=== PATIENT | female | born 1930 | race Asian ===

== ENCOUNTER 2019-03-03 19:58 | Inpatient (IN) | payer OTHER, MEDICAID ==
[~2019-03-03] VITALS: Ht 154.9 cm; Wt 44.0 kg
[~2019-03-03 19:58] MED LIST: CEFAZOLIN 1 GM IVPB PREMIX 50 ML IV ONE; GLYCOPYRROLATE 0.2 MG/ML VIAL IJ ONE; LR 1,000 ML IV.SOLN IV ONE; MIDAZOLAM HCL 5 MG/5 ML VIAL IVP ONE; NEOSTIGMINE METHYLSULFATE 1 MG/ML, 10 ML VIAL IVP ONE; ONDANSETRON HCL 4 MG/2 ML VIAL IVP ONE; ROCURONIUM BROMIDE 10 MG/ML (ZEMURON) IV ONE; SEVOFLURANE 15 MIN GAS INH ONE; fentaNYL CITRATE/PF 100 MCG/2 ML AMP IVP ONE
[2019-03-03 20:00] VITALS: BP_SYST 163
--- NOTE | 2019-03-03 20:31 | NUR ---
Patient to ER bed 05 for evaluation. Side rails up. Report given to Rosana BENNETT.
--- NOTE | 2019-03-03 20:32 | NUR ---
Pt AAOx4, cantonese speaking only, presents to ED via BLS from home c/o 8/ pain to L hip s/p mechanical trip and fall on [address] prior to arrival. Pt denies ko/head,neck,back pain. No meds given. No other injuries/complaints per pt/noted. Will continue to monitor.
[2019-03-03] MEDS ORDERED: KETOROLAC TROMETHAMINE 30 MG VIAL IM ONE (21:00)
[2019-03-03] MEDS ORDERED: MORPHINE 2 MG/ML INJ. SYRINGE IM ONE (21:00)
--- NOTE | 2019-03-03 21:15 | NUR ---
ER Dr. De Jesus at bedside examining patient.
[2019-03-03 21:24] LABS: BASOPHILS % (AUTO) 0.3 % (0.0-2.0); EOSINOPHILS % (AUTO) 0.6 % (0.0-4.0); HEMATOCRIT 35.5 % (36-48); LYMPHOCYTES # (AUTO) 0.7 K/uL (1.0-5.5); LYMPHOCYTES % (AUTO) 10.8 % (20.5-51.5); MEAN CORPUSCULAR HEMOGLOBIN 31 pg (27-31); MEAN CORPUSCULAR HGB CONC 34 % (32-36); MEAN CORPUSCULAR VOLUME 93 fL (79.0-98.0); MONOCYTES # (AUTO) 0.3 K/uL (0.0-1.0); MONOCYTES % (AUTO) 4.5 % (1.7-9.3); NEUTROPHILS # (AUTO) 5.1 K/uL (1.8-7.7); NEUTROPHILS % (AUTO) 83.8 % (40.0-70.0); PLATELET COUNT (AUTO) 146 K/uL (130-430); RED BLOOD CELL COUNT(AUTO) 3.84 MIL/uL (4.2-6.2); RED CELL DISTRIBUTION WIDTH 13.4 % (9.0-15.0); WHITE BLOOD COUNT (AUTO) 6.1 K/uL (4.8-10.8)
[2019-03-03] MEDS ORDERED: KETOROLAC TROMETHAMINE 30 MG VIAL IVP ONE (21:30)
[2019-03-03] MEDS ORDERED: MORPHINE 2 MG/ML INJ. SYRINGE IVP ONE (21:30)
[2019-03-03 21:49] LABS: PROTHROMBIN TIME 10.1 SECS (9.5-12.5)
[2019-03-03 21:55] LABS: ALANINE AMINOTRANSFERASE 15 U/L (12-78); ALBUMIN 3.6 g/dL (3.4-4.8); ANION GAP 6 (5-15); ASPARTATE AMINOTRANSFERASE 19 U/L (10-37); CHLORIDE 104 mmol/L (98-107); CREATININE 0.89 mg/dL (0.55-1.30); GLUCOSE 130 mg/dL (70-99); POTASSIUM 3.6 mmol/L (3.5-5.1); SODIUM SERUM 141 mmol/L (136-145); TOTAL BILIRUBIN 0.3 mg/dL (0.0-1.0); UREA NITROGEN, BLOOD 26 mg/dL (8-21)
[2019-03-03] MEDS ORDERED: MEMA14CA PO (21:59)
[2019-03-03] MEDS ORDERED: CELE200C PO (21:59)
[2019-03-03] MEDS ORDERED: LIP10 PO (21:59)
[2019-03-03] MEDS ORDERED: APIX2.5T PO (21:59)
[2019-03-03] MEDS ORDERED: SYN75 PO (21:59)
[2019-03-03] MEDS ORDERED: SENN-104 PO (21:59)
[2019-03-03] MEDS ORDERED: NIFE-2 PO (21:59)
[2019-03-03] MEDS ORDERED: CALC-823 PO (21:59)
--- NOTE | 2019-03-03 22:11 | NUR ---
Patient will be admitted to care of Dr. Reynolds. Admitted to Telemetry unit. Will go to room 112 A. Belongings list completed. Summary report printed. Report will be given at bedside.
--- NOTE | 2019-03-03 22:12 | NUR ---
Transfer to Telemetry via ACLS protocol. Licensed nurse present. IV present no signs or symptoms of infiltration.
[2019-03-03] MEDS ORDERED: ACETAMINOPHEN 325 MG TABLET PO PRN (22:15)
[2019-03-03] MEDS ORDERED: HYDROcodone/ACETAMIN 5-325 MG TAB (NORCO/ VICODIN) PO PRN (22:15)
[2019-03-03] MEDS ORDERED: CELECOXIB 200 MG CAPSULE PO SCH (22:15)
--- NOTE | 2019-03-03 22:19 | NUR ---
ADMIT NOTE Received pt from ER to the floor with a diagnosis of possible bilateral hip fracture. Admission process initiated. patient oriented to pain management, safety and call light-teach back done.
[2019-03-03 22:41] VITALS: BP_SYST 133
--- NOTE | 2019-03-03 23:00 | NUR ---
initial notes: pt is awake, alert, oriented x 2, cantonese speaking, s/p fall at the street. dx of possible bilateral hip fracture. pt has severe pain to left hip when move. lump showing to left hip. no skin breakdown at the back. pt has left pacemaker- 100% rhythm. left ac gauge 18 saline lock. no skin breakdown at the back. discuss to daughter the plan of care,safety and call light. daughter and pt agree. needs attended, call light in reach. side rails up. bed alarm on.low bed position. will monitor.
--- NOTE | 2019-03-03 23:20 | NUR ---
pt agree for pt to have noriega catheter due to her condition.
[2019-03-03] MEDS: MORPHINE 2 MG/ML INJ. SYRINGE IVP PRN (23:42)
[2019-03-03] MEDS: NACL 0.9% 1,000 ML IV SCH (23:42)
[2019-03-04 01:29] LABS: THYROID STIMULATING HORMONE 2.26 uIu/mL (0.36-3.74)
--- NOTE | 2019-03-04 01:46 | NUR ---
CONSULTATION PAGED REASON FOR CONSULTATION: LEFT HIP FRACTURE WAS CONSULT CALLED? YES PERSON WHO WAS NOTIFIED: ADDISON CONSULTING PHYSICIAN: DR. HUMPHRIES BUT DR. KEY TRANSFER IRON OPERATOR FOR THIS MORNING RN PRIMARY CARE SPECIALTY: ORTHO RN PRIMARY CARE PHONE NUMBER: [phone] ORDERING PHYSICIAN: DR. SAUNDERS
[2019-03-04 01:53] LABS: CALCIUM 9.5 mg/dL (8.4-11.0)
--- NOTE | 2019-03-04 02:00 | NUR ---
pt is resting, comfortable. no sign of pain, not distress. no sob. ivf infusing well. safety on. will monitor.
--- NOTE | 2019-03-04 04:00 | NUR ---
sleeping, no pain. no sob. npo. needs attended.
--- NOTE | 2019-03-04 04:00 | NUR ---
still sleeping. noriega catheter draining well. no pain. non labored breathing. safety on. call light in reach needs attended.
[2019-03-04 05:30] LABS: BILIRUBIN,URINE NEGATIVE (NEGATIVE); CLARITY/URINE CLEAR (CLEAR); COLOR,URINE YELLOW (YELLOW); GLUCOSE,URINE NEGATIVE (NEGATIVE); KETONES,URINE NEGATIVE (NEGATIVE); LEUKOCYTE ESTERASE ,URINE NEGATIVE (NEGATIVE); NITRITE, URINE POSITIVE (NEGATIVE); PH,URINE 6.5 (5.0-8.0); PROTEIN URINE NEGATIVE (NEGATIVE); UROBILINOGEN,URINE 0.2 (0.2-1.0)
[2019-03-04 05:37] LABS: BLOOD, URINE TRACE (NEGATIVE)
[2019-03-04 05:40] LABS: BACTERIA,URINE MANY /HPF (None Seen); WBC,URINE 0-3 /HPF (0-3)
--- NOTE | 2019-03-04 06:08 | NUR ---
still sleeping. ivf infusing. . no pain. non labored breathing. safety on. call light in reach needs attended.
[2019-03-04] MEDS: LEVOTHYROXINE SODIUM 0.075 MG TABLET PO SCH (06:09)
--- NOTE | 2019-03-04 06:56 | NUR ---
closing: pt is awake, alert. no pain. no sob. not distress. ivf infusing well. noriega catheter draining well to clear urine. needs attended the whole shift. will give bedside report to am rn.
[2019-03-04 08:00] VITALS: BP_SYST 134
--- NOTE | 2019-03-04 08:00 | NUR ---
ASSUMPTION OF CARE: RECEIVED PT AWAKE, ORIENTED TO NAME, CANTONESE SPEAKING, DX:PAIN, R/T BILATERAL HIP FX. AFEBRILE, VSS, NO C/O PAIN, REMAINS BEDREST W/FALL PRECAUTIONS. BREATH SOUNDS ARE CLEAR, BREATHING UNLABORED, IV SITE INTACT, PATENT, NO REDNESS OR SWELLING, SKIN INTACT, ORIENTED TO UNIT, CALL LIGHT PLACED WITHIN REACH, WILL CONT' TO MONITOR AND ASSESS.
[2019-03-04] MEDS: ATORVASTATIN 10 MG TABLET PO SCH (09:00)
[2019-03-04] MEDS ORDERED: MEMANTINE HCL 7 MG CAP.SPR.24 PO SCH (09:00)
[2019-03-04] MEDS: MEMANTINE HCL 5 MG TABLET PO SCH ×2 (09:00→21:00)
[2019-03-04] MEDS: DOCUSATE SODIUM 100 MG CAPSULE PO SCH ×2 (09:00→21:00)
[2019-03-04] MEDS: NIFEDIPINE 30 MG TAB.ER.24 PO SCH (09:00)
[2019-03-04 10:28] LABS: CHOLESTEROL 166 mg/dL (<200); HDL CHOLESTEROL 85 mg/dL (>55); LDL CHOLESTEROL 70 mg/dL (<100); TRIGLYCERIDES 29 mg/dL (30-150)
--- NOTE | 2019-03-04 10:37 | NUR ---
Nutrition Update Steve Scale 15 noted. Pt admitted for possible bilateral hip fracture. Diet: NPO BMI: 18.5 kg/m2 RD to follow per nutrition care standards.
[2019-03-04] MEDS: MORPHINE 2 MG/ML INJ. SYRINGE IVP PRN ×2 (10:46→19:20)
[2019-03-04] MEDS: cefTRIAXone 1 GM IVPB PREMIX 50 ML IV SCH (10:47)
[2019-03-04 12:00] VITALS: BP_SYST 142
[2019-03-04] MEDS ORDERED: POLYMYXIN 500,000/BACIT.10,000 UNITS in NS IRR 1 L IR ONE (13:43)
--- NOTE | 2019-03-04 14:00 | NUR ---
OR: PT OFF UNIT TO OR FOR HIP REPLACEMENT, FAMILY AT BEDSIDE, SPOKE WITH (ANESTHESIOLOGIST) REGARDING PROCEDURE, VERBALIZES UNDERSTANDING, CONSENT SIGNED, PT IS STABLE, WILL CONT' WITH POC.
[2019-03-04] MEDS ORDERED: LR 1,000 ML IV SCH (15:11)
[2019-03-04] MEDS ORDERED: MORPHINE 4 MG/ML INJ. SYRINGE IVP PRN (15:15)
[2019-03-04] MEDS ORDERED: ONDANSETRON HCL 4 MG/2 ML VIAL IVP PRN ×2 (15:15→15:45)
[2019-03-04] MEDS ORDERED: SENNOSIDES 8.6 MG TABLET PO PRN (15:45)
[2019-03-04] MEDS ORDERED: DIPHENHYDRAMINE HCL 25 MG CAPSULE PO PRN (15:45)
[2019-03-04] MEDS ORDERED: CEFAZOLIN 1 GM IVPB PREMIX 50 ML IV SCH (15:45)
[2019-03-04] MEDS ORDERED: HYDROcodone/ACETAMIN 5-325 MG TAB (NORCO/ VICODIN) PO PRN ×2 (15:45)
[2019-03-04] MEDS ORDERED: ACETAMINOPHEN 325 MG TABLET PO PRN (15:45)
[2019-03-04] MEDS: MORPHINE 4 MG/ML INJ. SYRINGE IVP PRN ×2 (15:57→16:25)
[2019-03-04] MEDS ORDERED: MORPHINE 4 MG/ML INJ. SYRINGE ONE (16:02)
--- NOTE | 2019-03-04 16:21 | NUR ---
Dietitian Recommendations * Consider advance to regular diet w/ Ensure Enlive TID if/when medically appropriate (ONS provides 1050 kcal/day, 60 gm protein/day) EDDIE, RD Please refer to Nutrition Assessment for details. Addendum: 03/04/19 at [address] Amended: Links added.
[2019-03-04 16:29] VITALS: BP_SYST 142
--- NOTE | 2019-03-04 17:30 | NUR ---
OR: PT RETURNED TO ROOM S/P ORIF OF LEFT HIP, NO C/O PAIN, DRSG SITE CLEAN, DRY AND INTACT, FAMILY REMAINS AT BEDSIDE, WILL CONT' TO MONITOR AND ASSESS.
[2019-03-04] MEDS: D5LR 1,000 ML IV SCH (18:27)
[2019-03-04] MEDS: ONDANSETRON HCL 4 MG/2 ML VIAL IVP PRN (19:15)
[2019-03-04] MEDS: FERROUS SULFATE 325 MG TABLET.DR PO SCH (21:00)
[2019-03-04] MEDS ORDERED: DOCUSATE SODIUM 100 MG CAPSULE PO SCH (21:00)
[2019-03-04 21:30] VITALS: BP_SYST 112
[2019-03-05 00:32] VITALS: BP_SYST 145
[2019-03-05] MEDS: D5LR 1,000 ML IV SCH ×2 (01:41→11:00)
[2019-03-05] MEDS: NACL 0.9% 1,000 ML IV SCH (02:51)
[2019-03-05 04:00] VITALS: BP_SYST 144
[2019-03-05 07:01] LABS: BASOPHILS % (AUTO) 0.3 % (0.0-2.0); EOSINOPHILS % (AUTO) 0.1 % (0.0-4.0); HEMOGLOBIN 7.3 g/dL (12.0-16.0); LYMPHOCYTES # (AUTO) 0.4 K/uL (1.0-5.5); LYMPHOCYTES % (AUTO) 7.7 % (20.5-51.5); MEAN CORPUSCULAR HEMOGLOBIN 31 pg (27-31); MEAN CORPUSCULAR HGB CONC 34 % (32-36); MEAN CORPUSCULAR VOLUME 94 fL (79.0-98.0); MONOCYTES # (AUTO) 0.3 K/uL (0.0-1.0); NEUTROPHILS # (AUTO) 4.4 K/uL (1.8-7.7); NEUTROPHILS % (AUTO) 86.9 % (40.0-70.0); PLATELET COUNT (AUTO) 86 K/uL (130-430); RED BLOOD CELL COUNT(AUTO) 2.32 MIL/uL (4.2-6.2); RED CELL DISTRIBUTION WIDTH 13.6 % (9.0-15.0); WHITE BLOOD COUNT (AUTO) 5.1 K/uL (4.8-10.8)
[2019-03-05] MEDS: LEVOTHYROXINE SODIUM 0.075 MG TABLET PO SCH (07:14)
[2019-03-05 07:38] LABS: ANION GAP 3 (5-15); CHLORIDE 110 mmol/L (98-107); CREATININE 1.01 mg/dL (0.55-1.30); GLUCOSE 186 mg/dL (70-99); SODIUM SERUM 142 mmol/L (136-145); UREA NITROGEN, BLOOD 21 mg/dL (8-21)
[2019-03-05 07:41] LABS: HEMATOCRIT 21.8 % (36-48)
--- NOTE | 2019-03-05 08:00 | NUR ---
Opening note patient resting in bed, a/ox1-2, reoriented to place, time and event, patient denies pain, dressing to left hip clean, dry and intact, assessment complete, IV line is patent and infusing well, continuing to monitor, bed in lowest position, three side rails up, bed alarm on, bed close to nursing station, call light within reach, fall and aspiration precautions in place. Addendum: 03/05/19 at 1441 by Escobar Stallworth RN [phone] Neurovascular check was complete patient denies numbness or tingling, denies pain, bilateral dorsalis pedis pulses present, patient is able to move bilateral ankles and toes.
[2019-03-05 08:07] LABS: CALCIUM 7.7 mg/dL (8.4-11.0)
[2019-03-05] MEDS ORDERED: ENOXAPARIN SODIUM 40 MG/0.4 ML SYRINGE SUBCUT SCH (09:00)
--- NOTE | 2019-03-05 09:00 | NUR ---
Dr. Marcum rounds clarified if patient should received Lovenox due to low H/H and low platelet levels, Dr. Marcum stated to hold medication for now, and clarified IVF orders, will follow up.
[2019-03-05 09:28] LABS: TOTAL IRON BIND. CAPACITY 149 ug/dL (250-450)
[2019-03-05] MEDS: FERROUS SULFATE 325 MG TABLET.DR PO SCH ×2 (09:51→21:59)
[2019-03-05] MEDS: MEMANTINE HCL 5 MG TABLET PO SCH ×2 (09:51→21:59)
[2019-03-05] MEDS: ATORVASTATIN 10 MG TABLET PO SCH (09:51)
[2019-03-05] MEDS: NIFEDIPINE 30 MG TAB.ER.24 PO SCH (09:51)
[2019-03-05] MEDS: DOCUSATE SODIUM 100 MG CAPSULE PO SCH ×2 (09:51→21:59)
--- NOTE | 2019-03-05 09:51 | NUR ---
Medication patient resting in bed, awake, denies pain, educated the patient and family on medications uses and potential side effects, they verbalized understanding, patient tolerated well, no other needs at this time, continuing to monitor, bed in lowest position, three side rails up, bed alarm on, bed close to nursing station, call light within reach, fall and aspiration precautions in place.
[2019-03-05] MEDS: cefTRIAXone 1 GM IVPB PREMIX 50 ML IV SCH (09:56)
[2019-03-05] MEDS: ONDANSETRON HCL 4 MG/2 ML VIAL IVP PRN (10:48)
[2019-03-05] MEDS: MORPHINE 2 MG/ML INJ. SYRINGE IVP PRN (11:09)
--- NOTE | 2019-03-05 11:09 | NUR ---
Medication/Rounds patient resting in bed, family at bedside, patient complaining of nausea and pain, educated the patient and family on PRN medications uses and potential side effects, they verbalized understanding, IV line is patent and infusing well, continuing to monitor, bed in lowest position, three side rails up, bed alarm on, bed close to nursing station, call light within reach, fall and aspiration precautions in place.
[2019-03-05 12:15] VITALS: BP_SYST 151
--- NOTE | 2019-03-05 12:30 | NUR ---
Neurovascular check/Rounds patient denies numbness or tingling, denies pain, bilateral dorsalis pedis pulses present, patient is able to move bilateral ankles and toes, no change in temperature in bilateral lower extremities.
[2019-03-05 13:28] VITALS: BP_SYST 139
--- NOTE | 2019-03-05 14:20 | NUR ---
RN rounds patient resting in bed, awake, denies pain, dressing to left hip is clean dry and intact, IV line is patent and infusing well, continuing to monitor, bed in lowest position, three side rails up, bed alarm on, bed close to nursing station, fall and aspiration precautions in place.
--- NOTE | 2019-03-05 15:37 | NUR ---
Patient restless reoriented her, repositioned patient, patient pulled out her Awan Catheter, will inform MD, patient IV line is intact and patent, infusing well, replaced telemetry leads on patient, continuing to monitor, bed in lowest position, three side rails up, bed alarm on, bed close to nursing station, call light within reach, fall and aspiration precautions in place. Addendum: 03/05/19 at 1548 by Escobar Stallworth RN patient removed the dressing to left hip, changed dressing to left hip, incision intact, no active bleeding from the site at this time, only [address] in place at this time, continuing to monitor incision for bleeding or drainage.
--- NOTE | 2019-03-05 16:15 | NUR ---
Dr. Jossue doss for orders and to inform of patient pulling out Awan Catheter and no stool for stool OB yet. Addendum: 03/05/19 at 1620 by Escobar Stallworth RN Doctor call back received OK to leave Awan Catheter out, informed that stool OB has not been obtained yet, still obtain CBC for 1700 today, will follow up.
--- NOTE | 2019-03-05 16:55 | NUR ---
RN rounds patient resting in bed, she denies pain, dressing to left hip clean, dry and intact, patient's family is at bedside, they were informed that patient pulled out her Awan Catheter and the doctor stated to keep Awan Catheter out, they verbalized understanding, no other needs at this time, continuing to monitor, bed in lowest, position, three side rails up, bed alarm on, bed close to nursing station, call light within reach, fall and aspiration precautions in place.
[2019-03-05 17:20] LABS: BASOPHILS % (AUTO) 0.3 % (0.0-2.0); LYMPHOCYTES # (AUTO) 0.5 K/uL (1.0-5.5); LYMPHOCYTES % (AUTO) 8.6 % (20.5-51.5); MEAN CORPUSCULAR HEMOGLOBIN 31 pg (27-31); MEAN CORPUSCULAR HGB CONC 33 % (32-36); MEAN CORPUSCULAR VOLUME 94 fL (79.0-98.0); MONOCYTES # (AUTO) 0.4 K/uL (0.0-1.0); MONOCYTES % (AUTO) 6.7 % (1.7-9.3); NEUTROPHILS # (AUTO) 4.9 K/uL (1.8-7.7); PLATELET COUNT (AUTO) 86 K/uL (130-430); RED BLOOD CELL COUNT(AUTO) 2.15 MIL/uL (4.2-6.2); RED CELL DISTRIBUTION WIDTH 13.6 % (9.0-15.0); WHITE BLOOD COUNT (AUTO) 5.8 K/uL (4.8-10.8)
[2019-03-05 17:41] LABS: HEMOGLOBIN 6.7 g/dL (12.0-16.0)
[2019-03-05 17:42] LABS: HEMATOCRIT 20.3 % (36-48)
[2019-03-05 18:08] LABS: NEUTROPHILS % (AUTO) 84.4 % (40.0-70.0)
--- NOTE | 2019-03-05 18:29 | NUR ---
Closing note patient resting in bed, awake, patient denies pain, all needs met, will endorse report to NOC shift nurse, patient bed in lowest position, three side rails up, bed alarm on, bed close to nursing station, call light within reach, fall and aspiration precautions in place.
[2019-03-05 20:00] VITALS: BP_SYST 147
--- NOTE | 2019-03-05 20:30 | NUR ---
Patient assesment in bed: Patient awake, alert to her name, but confused and disoriented. Smile when talked to, asked if she has pain "tong" in korean and shake her head. Respiration even and unlabored. No indication of respiratory distress. Will continue to monitor
--- NOTE | 2019-03-05 22:35 | NUR ---
Blood transfusion INITIATION: Consent signed per agreeing to administration of blood. Blood has been type and crossmatched. Blood sent from blood bank. Information on unit of blood checked against patient wristband at bedside by two nurses. All information matches. Vital signs taken within 5 minutes prior to initiation of transfusion V/S DI=993/75,TEMP=98.6, RI=88, RR=18. RN will remain with patient for first 15 minutes of transfusion at which time vital signs will be re-assessed.
--- NOTE | 2019-03-05 22:50 | NUR ---
Vital signs after 15 minutes: Vital signs taken after 15 minutes: VM=115/78, WA=78, RR=18, TEMP=99. No possible adverse reaction noted after 15 minutes. Will monitor closely.
--- NOTE | 2019-03-05 22:50 | NUR ---
Vital sign after 15 minutes
--- NOTE | 2019-03-06 01:30 | NUR ---
Blood transfusion completed: Blood transfusion completed at this time; no indication of adverse reaction, no itchiness, no indication of shortness of breath, no change of condition. VS: OS=940/70, TEMP.=99.1, HR-82, RR=18. Needs attended to. Incontinent care provided. No sign of distress.
[2019-03-06 01:41] VITALS: BP_SYST 155
--- NOTE | 2019-03-06 04:00 | NUR ---
Patient sleeping: Patient sleeping at this time. No sign of distress. Incontinent care provided , kept clean and dry. Dressing to left hip clean and dry. Reposition q 2 hours for comfort and to promote better circulation. IV fluids infusing well to left upper arm, IV site no s/s of infiltration. No significant changes in condition since initial assessment. Will continue to monitor.
[2019-03-06] MEDS: LEVOTHYROXINE SODIUM 0.075 MG TABLET PO SCH (05:57)
[2019-03-06 06:02] VITALS: BP_SYST 143
--- NOTE | 2019-03-06 06:02 | NUR ---
Opening note patient resting in bed, a/ox1-2, reoriented to place, time and event, patient denies pain, dressing to left hip clean, dry and intact, assessment complete, IV line is patent and infusing well, neurovascular check complete, continuing to monitor, bed in lowest position, three side rails up, bed alarm on, bed close to nursing station, call light within reach, fall and aspiration precautions in place.
[2019-03-06 06:47] LABS: BASOPHILS % (AUTO) 0.4 % (0.0-2.0); HEMATOCRIT 25.5 % (36-48); HEMOGLOBIN 8.6 g/dL (12.0-16.0); LYMPHOCYTES % (AUTO) 12.2 % (20.5-51.5); MEAN CORPUSCULAR HEMOGLOBIN 32 pg (27-31); MEAN CORPUSCULAR HGB CONC 34 % (32-36); MEAN CORPUSCULAR VOLUME 94 fL (79.0-98.0); MONOCYTES # (AUTO) 0.5 K/uL (0.0-1.0); MONOCYTES % (AUTO) 6.7 % (1.7-9.3); NEUTROPHILS # (AUTO) 6.5 K/uL (1.8-7.7); NEUTROPHILS % (AUTO) 80.7 % (40.0-70.0); PLATELET COUNT (AUTO) 91 K/uL (130-430); RED BLOOD CELL COUNT(AUTO) 2.72 MIL/uL (4.2-6.2); RED CELL DISTRIBUTION WIDTH 13.5 % (9.0-15.0); WHITE BLOOD COUNT (AUTO) 8.1 K/uL (4.8-10.8)
[2019-03-06 07:04] LABS: ANION GAP 6 (5-15); CALCIUM 8.4 mg/dL (8.4-11.0); CHLORIDE 105 mmol/L (98-107); CREATININE 0.74 mg/dL (0.55-1.30); SODIUM SERUM 141 mmol/L (136-145); UREA NITROGEN, BLOOD 13 mg/dL (8-21)
[2019-03-06 07:11] LABS: GLUCOSE 175 mg/dL (70-99)
[2019-03-06 07:16] LABS: FOLATE (FOLIC ACID) 6.5 ng/mL (>3.0)
[2019-03-06 07:19] LABS: POTASSIUM 2.8 mmol/L (3.5-5.1)
[2019-03-06] MEDS ORDERED: POTASSIUM CHLORIDE 20 MEQ/PKT PACKET PO ONE ×3 (08:30→12:00)
--- NOTE | 2019-03-06 08:30 | NUR ---
Spoke with Dr. Ovalle informed him that 1 unit PRBCs were given last night and that today potassium is low today and I spoke with Dr. Marcum for orders, Dr. Ovalle stated that patient is okay to discharge to SNF and follow up with him.
[2019-03-06] MEDS: DOCUSATE SODIUM 100 MG CAPSULE PO SCH ×2 (09:23→21:50)
[2019-03-06] MEDS: NIFEDIPINE 30 MG TAB.ER.24 PO SCH (09:23)
[2019-03-06] MEDS: MORPHINE 2 MG/ML INJ. SYRINGE IVP PRN (09:23)
[2019-03-06] MEDS: ATORVASTATIN 10 MG TABLET PO SCH (09:23)
[2019-03-06] MEDS: MEMANTINE HCL 5 MG TABLET PO SCH ×2 (09:23→21:50)
[2019-03-06] MEDS: cefTRIAXone 1 GM IVPB PREMIX 50 ML IV SCH (09:32)
[2019-03-06] MEDS: FERROUS SULFATE 325 MG TABLET.DR PO SCH ×2 (09:32→21:50)
[2019-03-06] MEDS: D5LR 1,000 ML IV SCH (09:32)
--- NOTE | 2019-03-06 09:35 | NUR ---
Medication patient resting in bed, awake, denies pain, turned, cleaned and repositioned patient with POT FILLER, patient tolerated well, educated the patient and family on medications uses and potential side effects, they verbalized understanding, patient tolerated well, IV line is patent and infusing well, no other needs at this time, continuing to monitor, bed in lowest position, three side rails up, bed alarm on, bed close to nursing station, call light within reach, fall and aspiration precautions in place.
[2019-03-06] MEDS ORDERED: POTASSIUM CHLORIDE 40 MEQ, LIDOCAINE JECT 2% PF 100 MG 50 MG in NS 250 ML IV ONE (10:45)
[2019-03-06] MEDS ORDERED: ENOXAPARIN SODIUM 40 MG/0.4 ML SYRINGE SUBCUT ONE (10:45)
--- NOTE | 2019-03-06 10:45 | NUR ---
Dr. Marcum rounds assessed patient, spoke with family at bedside at length regarding DC planning.
--- NOTE | 2019-03-06 11:08 | NUR ---
RN rounds/medication patient resting in bed, eyes closed, breathing is even and unlabored, easy to wake, educated the patient and family on new medication uses and potential side effects, they verbalized understanding, patient tolerated administration well, no other needs at this time, continuing to monitor, bed in lowest position, three side rails up, bed alarm on, bed close to nursing station, fall and aspiration precautions in place, call light within reach.
--- NOTE | 2019-03-06 11:55 | NUR ---
Called Pharmacy regarding K rider dose for 1045 today, not yet received, spoke with Storm, they are working on it, will follow up as needed.
--- NOTE | 2019-03-06 12:17 | NUR ---
PT note Patient feeling nauseous and dizzy, hold therapy for today; nursing aware.
--- NOTE | 2019-03-06 12:25 | NUR ---
RN rounds/medication patient resting in bed, awake, denies pain, K rider received from pharmacy, started administration per MD orders, patient is tolerating well, IV line is patent and infusing well, continuing to monitor, bed in lowest position, three side rails up, bed alarm on, bed close to nursing station, call light within reach, fall and aspiration precautions in place.
[2019-03-06 12:29] VITALS: BP_SYST 144
[2019-03-06] MEDS: ONDANSETRON HCL 4 MG/2 ML VIAL IVP PRN (13:28)
--- NOTE | 2019-03-06 13:30 | NUR ---
RN rounds/Medication patient resting in bed, pointing to lloyd-area, patient voided, cleaned, turned and repositioned patient with TITLE CURATOR, patient tolerated well, after patient motioning as if she needs to vomit, patient did not vomit, administered PRN Zofran per MD orders, IV line is patent and infusing well, continuing to monitor, bed in lowest position, three side rails up, bed alarm on, call light within reach, fall and aspiration precautions in place.
--- NOTE | 2019-03-06 15:20 | NUR ---
RN rounds patient resting in bed, cleaned, turned and repositioned patient with STRATEGIC DEVELOPMENT MANAGER, patient tolerated well, patient asking for emesis basin, provided with, patient did not vomit, but would like to keep the basin close by, aspiration precautions in place, continuing to monitor patient, IV line is patent and infusing well, bed in lowest position, three side rails up, bed alarm on, bed close to nursing station, call light within reach, fall and aspiration precautions in place.
[2019-03-06 15:45] LABS: HEMOGLOBIN A1C 5.9 % (4.8-5.6)
[2019-03-06 16:50] VITALS: BP_SYST 140
--- NOTE | 2019-03-06 17:20 | NUR ---
RN rounds patient resting in bed, patient voided, cleaned, turned and repositioned patient with CLOTH MENDER, patient tolerated well, continuing to monitor patient, IV line is patent and infusing well, bed in lowest position, three side rails up, bed alarm on, bed close to nursing station, call light within reach, fall and aspiration precautions in place.
--- NOTE | 2019-03-06 17:45 | NUR ---
Family at bedside assisting to feed the patient, patient is refusing to eat, drinking some of the Ensure, family stated they visited local [place] [facility] facilities, and will come to a decision soon, updates given on patient status to the patient's daughter.
--- NOTE | 2019-03-06 18:35 | NUR ---
Closing note patient resting in bed, awake, her family is at bedside, K rider complete and market development manager at bedside to draw BMP, delay was due to K rider not being complete earlier, all needs met for the patient, will endorse report to NOC shift nurse, continuing to monitor, bed in lowest position, three side rails up, bed alarm on, bed close to nursing station, fall and aspiration precautions in place, IV line is patent and infusing well.
[2019-03-06 19:06] LABS: ANION GAP 1 (5-15); CHLORIDE 103 mmol/L (98-107); CREATININE 0.71 mg/dL (0.55-1.30); GLUCOSE 171 mg/dL (70-99); POTASSIUM 3.5 mmol/L (3.5-5.1); SODIUM SERUM 135 mmol/L (136-145); UREA NITROGEN, BLOOD 9 mg/dL (8-21)
[2019-03-06 20:00] VITALS: BP_SYST 134
--- NOTE | 2019-03-06 20:00 | NUR ---
Pt was received lying in bed fully awake, alert and oriented to her name only. No acute distress noted and no c/o pain or discomfort. Left hip dressing is dry and intact. Neurovascular checks to BLE are WNL. Pt was encouraged to use IS 10x Q 1hr WA and pt verbalized understanding. Pt's IS usage is up to 500ml. IVF of D5LR is infusing well at 60ml/hr in KIMI without any signs of infiltration. Fall and safety precautions are in place. Call light is with pt and bed alarm is on. Pt's room is across from the Nurses' Station.
--- NOTE | 2019-03-06 22:00 | NUR ---
Pt remains awake and alert. IVF is infusing well in KIMI. Hs medications already taken by pt and no difficulty swallowing noted. Fall and safety precautions are in place.
--- NOTE | 2019-03-07 | NUR ---
Neurovascular checks to BLE are WNL. Left hip dressing remains dry and intact. Fall and safety precautions are in place.
[2019-03-07 00:27] VITALS: BP_SYST 143
--- NOTE | 2019-03-07 02:00 | NUR ---
Pt is sleeping in bed without any distress noted. IVF is infusing well in KIMI. Fall and safety precautions are in place. Call light is with pt and bed alarm is on.
[2019-03-07] MEDS: D5LR 1,000 ML IV SCH ×2 (02:21→15:29)
--- NOTE | 2019-03-07 04:00 | NUR ---
Pt is resting comfortably in bed. Neurovascular checks to BLE are WNL. Fall and safety precautions are in place.
[2019-03-07] MEDS: LEVOTHYROXINE SODIUM 0.075 MG TABLET PO SCH (06:27)
--- NOTE | 2019-03-07 06:30 | NUR ---
Pt is awake and resting quietly in bed. All pt's needs were attended to. Fall and safety precautions are in place. Will endorse to day shift nurse.
[2019-03-07 07:06] LABS: BASOPHILS % (AUTO) 0.3 % (0.0-2.0); EOSINOPHILS % (AUTO) 0.4 % (0.0-4.0); HEMATOCRIT 23.6 % (36-48); HEMOGLOBIN 7.9 g/dL (12.0-16.0); LYMPHOCYTES # (AUTO) 0.6 K/uL (1.0-5.5); MEAN CORPUSCULAR HEMOGLOBIN 32 pg (27-31); MEAN CORPUSCULAR HGB CONC 34 % (32-36); MEAN CORPUSCULAR VOLUME 95 fL (79.0-98.0); MONOCYTES # (AUTO) 0.4 K/uL (0.0-1.0); MONOCYTES % (AUTO) 9.2 % (1.7-9.3); NEUTROPHILS # (AUTO) 3.7 K/uL (1.8-7.7); NEUTROPHILS % (AUTO) 78.1 % (40.0-70.0); PLATELET COUNT (AUTO) 89 K/uL (130-430); RED BLOOD CELL COUNT(AUTO) 2.49 MIL/uL (4.2-6.2); RED CELL DISTRIBUTION WIDTH 13.6 % (9.0-15.0); WHITE BLOOD COUNT (AUTO) 4.7 K/uL (4.8-10.8)
--- NOTE | 2019-03-07 07:30 | NUR ---
AM rounds: Awake, oriented. Denies pain when asked. Dressing to left hip noted with old drainage stain. NO active bleeding noted on the surgical site. Safety precaution in place. Call light within reach.
[2019-03-07 07:35] LABS: CALCIUM 8.1 mg/dL (8.4-11.0); CREATININE 0.73 mg/dL (0.55-1.30); GLUCOSE 132 mg/dL (70-99); UREA NITROGEN, BLOOD 12 mg/dL (8-21)
[2019-03-07 07:43] LABS: ANION GAP 4 (5-15); CHLORIDE 104 mmol/L (98-107); POTASSIUM 3.3 mmol/L (3.5-5.1); SODIUM SERUM 141 mmol/L (136-145)
[2019-03-07 08:46] VITALS: BP_SYST 141
[2019-03-07] MEDS: MEMANTINE HCL 5 MG TABLET PO SCH ×2 (08:47→21:09)
[2019-03-07] MEDS: ATORVASTATIN 10 MG TABLET PO SCH (08:47)
[2019-03-07] MEDS: cefTRIAXone 1 GM IVPB PREMIX 50 ML IV SCH (08:47)
[2019-03-07] MEDS: DOCUSATE SODIUM 100 MG CAPSULE PO SCH ×2 (08:47→21:08)
[2019-03-07] MEDS: FERROUS SULFATE 325 MG TABLET.DR PO SCH ×2 (08:47→21:08)
[2019-03-07] MEDS: NIFEDIPINE 30 MG TAB.ER.24 PO SCH (08:48)
[2019-03-07] MEDS ORDERED: BISACODYL 5 MG TABLET.DR (DULCOLAX) PO ONE (09:15)
[2019-03-07] MEDS: ENOXAPARIN SODIUM 40 MG/0.4 ML SYRINGE SUBCUT SCH (09:54)
[2019-03-07] MEDS ORDERED: POTASSIUM CHLORIDE 40 MEQ, LIDOCAINE JECT 2% PF 100 MG 50 MG in NS 250 ML IV ONE (10:15)
--- NOTE | 2019-03-07 11:23 | NUR ---
Discharge Planning: Late Entry- 03/06/19 DESIREEP faxed pt packet to [facility] ([phone] p [phone]) [address] [id number] per daughter request. Daughter went on a tour and spoke to Berenice. Addendum: 03/07/19 at 1137 by Rina Cam DP DCP spoke to Berenice at [facility] ([phone] p [phone]) [address] [phone] patient accepted to 111. DCP made nurse, CM and daughter aware.
--- NOTE | 2019-03-07 11:30 | NUR ---
IV START: IV is infiltrated. Started gauge 20 on the left arm with blood return on first attempt. Secured angiocath with transparent dressing and tape. Covered old IV site with sterile 2x2 dressing. No bleeding noted.
[2019-03-07] MEDS: ONDANSETRON HCL 4 MG/2 ML VIAL IVP PRN (11:37)
[2019-03-07 12:00] VITALS: BP_SYST 151
--- NOTE | 2019-03-07 12:16 | NUR ---
PHYSICAL THERAPY CO-SIGN The Physical Therapy Progress Notes documented by Fuel Technician have been reviewed. Reviewed/Co-Signed by: Tay Sykes Documentation Done by: Manny France PTA Addendum: 03/07/19 at 1217 by Tay Sykes PT Amended: Links added.
[2019-03-07] MEDS: MILK OF MAGNESIA 30 ML UDC PO PRN (14:59)
--- NOTE | 2019-03-07 15:03 | NUR ---
NO BOWEL MOVEMENT: Still no BM, dulcolax was given this morning. MOM given now.
--- NOTE | 2019-03-07 16:10 | NUR ---
Nutritional F/U Admitting Diagnosis Possible bilateral hip fracture Medical History Comment: PMH: dementia, thyroid Dz, DVT, PE per physician notes RD reviewed pts current EMR including diet Hx, physician notes, nursing notes, pertinent labs/meds/ procedures, care trends, and care activity. Subjective Information Nutrition Consult received for Decreased PO Intake 03/06/19 1000. Pt was awake with two daughters at bedside. Pt daughter reported low 10% PO intake, 50% of Ensure Enlive, and constant nausea. Pt daughters stated they bring pt food from home most days but pt eats a few bites and reports satiety. Average PO intake of 38% x 9 meals recorded per EMR. Bed-scale reported 117.8 lb - may be inaccurate d/t linens. RN stated pt had not have a BM since admission, pt was provided with diuretic. Pt had L hip intertrochanteric fx sx, daughter reported pt has no discomfort/ complaints. DI encouraged PO/ONS intake; food preferences were noted on compnutrition. RN stated plans for d/c today or tomorrow. Current Diet Order/Nutrition Support Regular w/ Ensure Enlive TID x2 days NEW Pertinent Labs K 3.3 L, BG 132 H Estimated Energy Expenditure (kcals/day) 1331-8553 kcal/day (30-35 kcal/kg CBW for surgical healing, wt gain) Estimated Protein Required (g/day) 58-72 gm/day (1.2-1.5 gm/kg CBW for surgical healing, wt gain) Estimated Fluid Required (l/day) 1.4-1.7 L/day (1 ml/kcal/day for surgical healing) Problem/Etiology/Signs/Symptoms Suboptimal PO intake related to decreased appetite as evidenced by average PO intake of 38% and pt daughter reporting lack of appetite. (* new) Increased nutritional needs related to surgical healing as evidenced by estimated nutritional requirements for L hip Sx. (* ongoing) Expected Outcomes/Goals - Monitor appetite and PO intakes w/ goal of pt meeting at least 65% of estimated nutritional needs, labs trending WNL, normal GI function, and skin integrity/wt maintenance. (* ongoing) Dietitian Recommendations * Recommend continuing regular diet w/ Ensure Enlive TID (ONS provides 1050 kcal/day, 60 gm protein/day) * Encourage PO intake. Follow Up High Risk: F/U in 2-3 days Signed: 03/07/19 at 1611 by Dalia PRINCE <Co-Signature Required> Co-Signed: 03/07/19 at [address]
--- NOTE | 2019-03-07 16:12 | NUR ---
Dietitian Recommendations * Recommend continuing regular diet w/ Ensure Enlive TID (ONS provides 1050 kcal/day, 60 gm protein/day) * Encourage PO intake. LP, RD Please refer to Nutrition F/U for details. Signed: 03/07/19 at 1612 by Dalia PRINCE <Co-Signature Required> Co-Signed: 03/07/19 at [address]
[2019-03-07 16:49] VITALS: BP_SYST 145
--- NOTE | 2019-03-07 18:18 | NUR ---
End of shift: Needs attended. No change in assessment. Family assisted with meals. Patient has very poor appetite.
--- NOTE | 2019-03-07 19:54 | NUR ---
Initial note: Received report from heavenly RN. Patient is awake in bed, no acute distress. Tolerating room air. IV fluids infusing per MD order to left forearm IV site, site is patent and benign. Call light with patient. Bed locked in lowest position, side rails raised x3, bed alar on. Will continue to monitor.
[2019-03-07 20:00] VITALS: BP_SYST 145
--- NOTE | 2019-03-07 21:43 | NUR ---
Rounds: Patient is awake, no acute distress. Offered patient a snack, patient agreed. Provided patient with Jello and cranberry juice. Call light with patient. Safety and fall precautions in place. Will continue to monitor.
--- NOTE | 2019-03-07 23:32 | NUR ---
Rounds: Patient is asleep, does not show any acute distress. Tolerating room air. IV fluids infusing as ordered. Call light with patient. Safety, fall precautions in place. Will continue to monitor.
[2019-03-08] VITALS: BP_SYST 138
[2019-03-08] MEDS: D5LR 1,000 ML IV SCH (00:02)
--- NOTE | 2019-03-08 02:50 | NUR ---
Rounds: Patient is asleep, no acute distress. Even and unlabored breathing on room air. IV fluids infusing well, no infiltration. Call light is with patient. Safety and fall precautions in place. Will continue to monitor.
--- NOTE | 2019-03-08 06:03 | NUR ---
Closing note: Patient is asleep, does not show any acute distress. Tolerating room air. IV fluids infusing well. All needs met. Safety and fall precautions observed. Hourly rounding performed throughout shift. Will endorse care to dayshift RN.
[2019-03-08] MEDS: LEVOTHYROXINE SODIUM 0.075 MG TABLET PO SCH (06:28)
[2019-03-08 07:01] LABS: BASOPHILS % (AUTO) 0.3 % (0.0-2.0); HEMATOCRIT 24.3 % (36-48); HEMOGLOBIN 8.1 g/dL (12.0-16.0); LYMPHOCYTES # (AUTO) 0.7 K/uL (1.0-5.5); LYMPHOCYTES % (AUTO) 16.6 % (20.5-51.5); MEAN CORPUSCULAR HEMOGLOBIN 32 pg (27-31); MEAN CORPUSCULAR HGB CONC 34 % (32-36); MEAN CORPUSCULAR VOLUME 95 fL (79.0-98.0); MONOCYTES # (AUTO) 0.4 K/uL (0.0-1.0); NEUTROPHILS # (AUTO) 2.9 K/uL (1.8-7.7); NEUTROPHILS % (AUTO) 72.1 % (40.0-70.0); PLATELET COUNT (AUTO) 105 K/uL (130-430); RED BLOOD CELL COUNT(AUTO) 2.57 MIL/uL (4.2-6.2); RED CELL DISTRIBUTION WIDTH 13.6 % (9.0-15.0)
[2019-03-08 07:06] LABS: CALCIUM 8.4 mg/dL (8.4-11.0); CHLORIDE 98 mmol/L (98-107); GLUCOSE 123 mg/dL (70-99); SODIUM SERUM 135 mmol/L (136-145); UREA NITROGEN, BLOOD 13 mg/dL (8-21)
[2019-03-08 07:07] LABS: ANION GAP < 3 (5-15)
[2019-03-08 08:14] VITALS: BP_SYST 164
--- NOTE | 2019-03-08 08:16 | NUR ---
AM ROUNDS: Patient is oriented, able to make needs known in simple mongolian words. Appetite is poor. Still no BM. IV fluids of D5LR at 60 cc/hr infusing on the left forearm gauge 20 , intact and patent. Incontinent of urine. Incision care done. Safety precautions in place. Bed alarm is on, call light within reach.
[2019-03-08] MEDS ORDERED: POTASSIUM CHLORIDE 40 MEQ, LIDOCAINE JECT 2% PF 100 MG 50 MG in NS 250 ML IV ONE (08:30)
[2019-03-08] MEDS: MILK OF MAGNESIA 30 ML UDC PO PRN (09:13)
[2019-03-08] MEDS: ENOXAPARIN SODIUM 40 MG/0.4 ML SYRINGE SUBCUT SCH (09:13)
[2019-03-08] MEDS: cefTRIAXone 1 GM IVPB PREMIX 50 ML IV SCH (09:13)
[2019-03-08] MEDS: NIFEDIPINE 30 MG TAB.ER.24 PO SCH (09:35)
[2019-03-08] MEDS: ATORVASTATIN 10 MG TABLET PO SCH (09:36)
[2019-03-08] MEDS: FERROUS SULFATE 325 MG TABLET.DR PO SCH (09:37)
[2019-03-08] MEDS: MEMANTINE HCL 5 MG TABLET PO SCH (09:38)
[2019-03-08] MEDS: DOCUSATE SODIUM 100 MG CAPSULE PO SCH (09:39)
[2019-03-08 09:52] VITALS: BP_SYST 152
--- NOTE | 2019-03-08 11:09 | NUR ---
DC Planning: Phone dtr/Tina regarding snf of choice, [facility] or [facility]. Tina confirmed to send pt to [facility]. Informed her the plan to discharge pt today. -- Dr. Marcum made aware. RN SABRINA Oliveira made aware.
--- NOTE | 2019-03-08 11:50 | NUR ---
D/C PLANNING BOOKED AMBULANCE WITH [facility] ([phone]) BLS SPOKE TO BANDAR. WILL BE PICKING UP PATIENT AT 16:00 PM. SABRINA WHARTON MADE AWARE.
[2019-03-08 11:57] VITALS: BP_SYST 152
[2019-03-08 12:22] VITALS: BP_SYST 165
--- NOTE | 2019-03-08 16:22 | NUR ---
Discharge: Dicharged to [facility] Room 111. Patient's daughter Tina is at bedside. [facility] for transport. Report given to Derek [phone].
[2019-03-08 16:35] VITALS: BP_SYST 153
--- NOTE | 2019-03-08 18:04 | NUR ---
PHYSICAL THERAPY CO-SIGN The Physical Therapy Progress Notes documented by Communication Lecturer have been reviewed. Reviewed/Co-Signed by: Danielle Ramirez PT Documentation Done by:EUFEMIA WRIGHT DIGITAL PRODUCTION MANAGER WILL BENEFIT W/ P.T. POST ACUTE STAY; 03/08/19 Hgb=8.1 Addendum: 03/08/19 at 1804 by Danielle Ramirez PT Amended: Links added.
== END 2019-03-08 16:30 | DRG 481 ==
LOC: SED 19:58 → EDSEX 19:58 → STU 22:04 → SMU 03-06 20:28
PROVIDERS: ADMIT Student in an Organized Health Care Education/Training Program; ATTEND Student in an Organized Health Care Education/Training Program
PROC: 0QS706Z Reposition Left Upper Femur with Intramedullary Internal Fixation Device, Open Approach (ICD-10-PCS; principal; 2019-03-04 14:00)
PROC: 30233N1 Transfusion of Nonautologous Red Blood Cells into Peripheral Vein, Percutaneous Approach (ICD-10-PCS; 2019-03-05)
DX: S72.142A Displaced intertrochanteric fracture of left femur, initial encounter for closed fracture (principal); N39.0 Urinary tract infection, site not specified; E78.00 Pure hypercholesterolemia, unspecified; F03.90 Unspecified dementia, unspecified severity, without behavioral disturbance, psychotic disturbance, mood disturbance, and anxiety; I10 Essential (primary) hypertension; E78.5 Hyperlipidemia, unspecified; M47.816 Spondylosis without myelopathy or radiculopathy, lumbar region; E89.0 Postprocedural hypothyroidism; I25.10 Atherosclerotic heart disease of native coronary artery without angina pectoris; D63.8 Anemia in other chronic diseases classified elsewhere; Z86.711 Personal history of pulmonary embolism; Z95.0 Presence of cardiac pacemaker; Z86.718 Personal history of other venous thrombosis and embolism; Z79.01 Long term (current) use of anticoagulants; W01.0XXA Fall on same level from slipping, tripping and stumbling without subsequent striking against object, initial encounter; Y93.89 Activity, other specified; Y92.89 Other specified places as the place of occurrence of the external cause; Y99.8 Other external cause status; R63.6 Underweight
CPT/HCPCS: 36415; 70450-TC; 71045; 73502; 76000; 80048; 80053; 80061; 81000-TC; 82150-TC; 82272; 82550-TC; 82607; 82728; 82746; 83036; 83540-TC; 83550-TC; 83690-TC; 83735-TC; 83880; 84100-TC; 84443-TC; 84484; 85025; 85610-TC; 85730-TC; 86886; 86900; 86901; 86920; 87040-TC; 87081; 93005; 96374; 96375; 97110-GP; 97116-GP; 97530-GP; 99285; C1713; C1769; G0378; J0690; J0696; J1650; J1885; J2250; J2270; J2405; J2710; J3010; J3480; J3490; J7030; J7050; J7120; P9021